=== PATIENT | female | born 1995 | race Caucasian/White ===

== ENCOUNTER 2018-02-13 02:16 | Emergency (ER) | payer SELFPAY ==
[~2018-02-13] VITALS: Ht 160 cm; Wt 73.0 kg
[2018-02-13] MEDS ORDERED: ONDANSETRON HCL 4MG/2ML VIAL IV STA (06:29)
[2018-02-13] MEDS ORDERED: MORPHINE SULFATE 4 MG/ML CPJ (NOT FOR IM USE) IV STA (06:29)
[2018-02-13] MEDS ORDERED: FAMOTIDINE 20MG/2ML VIAL IV STA (06:29)
[2018-02-13 07:03] LABS: BASOPHILS % 0.5 % (0.0-2.0); EOSINOPHILS % 14.1 % (0.0-5.0); HEMATOCRIT. 37.3 % (36.0-48.0); HEMOGLOBIN. 12.8 g/dL (12.0-16.0); LYMPHOCYTES % 36.9 % (20.0-50.0); MEAN CORPUSCULAR HEMOGLOBIN 28.5 pg (28.0-32.0); MEAN PLATELET VOLUME 8.5 fl (7.4-10.4); MONOCYTES % 7.1 % (2.0-8.0); NEUTROPHILS % 41.4 % (40.0-76.0); PLATELET 258 x1000/uL (130-400); RED BLOOD CELL COUNT 4.49 mill/uL (4.2-5.4); RED CELL DISTRIBUTION WIDTH 13.5 % (11.6-14.6)
[2018-02-13 07:08] LABS: CHLORIDE 108 mEq/L (98-107)
[2018-02-13 07:09] LABS: PROTHROMBIN TIME 10.5 sec (9.4-11.6)
[2018-02-13 09:37] LABS: CLARITY URINE CLEAR (CLEAR); COLOR URINE YELLOW (YELLOW); KETONES URINE NEGATIVE (NEGATIVE); LEUKOCYTE ESTERASE URINE NEGATIVE (NEGATIVE); NITRITE URINE NEGATIVE (NEGATIVE); OCCULT BLOOD URINE NEGATIVE (NEGATIVE); PH URINE 5.5 (4.5-8.0); PROTEIN URINE NEGATIVE (NEGATIVE); SPECIFIC GRAVITY URINE 1.017 (1.005-1.030); UROBILINOGEN URINE 0.2 E.U./dL (0.2-1.0)
[2018-02-13 11:00] VITALS: BP 133/86
== END 2018-02-13 11:30 | disposition home or self-care (01) ==
LOC: ER 02:16
DX: R10.32 Left lower quadrant pain (principal)
CPT/HCPCS: 36415; 74176; 76830; 76856; 80053; 81003; 81025; 83690; 85025; 85610; 96374; 96375; 99285; J2270; J2405; J3490; Z7610

== ENCOUNTER 2018-02-13 22:16 | Emergency (ER) | payer SELFPAY ==
[~2018-02-13] VITALS: Ht 157.5 cm; Wt 73.0 kg
[2018-02-14 00:52] LABS: BASOPHILS % 0.5 % (0.0-2.0); EOSINOPHILS % 14.5 % (0.0-5.0); HEMATOCRIT. 36.4 % (36.0-48.0); HEMOGLOBIN. 12.3 g/dL (12.0-16.0); LYMPHOCYTES % 34.9 % (20.0-50.0); MEAN CORPUSCULAR HEMOGLOBIN 28.3 pg (28.0-32.0); MEAN CORPUSCULAR VOLUME 83.6 fL (81.0-99.0); MEAN PLATELET VOLUME 8.8 fl (7.4-10.4); MONOCYTES % 8.6 % (2.0-8.0); NEUTROPHILS % 41.5 % (40.0-76.0); PLATELET 272 x1000/uL (130-400); RED BLOOD CELL COUNT 4.35 mill/uL (4.2-5.4); RED CELL DISTRIBUTION WIDTH 13.7 % (11.6-14.6)
[2018-02-14 02:00] VITALS: BP 122/68
== END 2018-02-14 02:40 | disposition home or self-care (01) ==
LOC: ER 22:53
DX: R10.32 Left lower quadrant pain (principal)
CPT/HCPCS: 36415; 81025; 85025; 99283